=== PATIENT | female | born 2000 | race Two or more races ===

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

== ENCOUNTER 2019-01-08 22:38 | Emergency (ER) | payer OTHER ==
[2019-01-08 22:54] VITALS: BP 144/97
== END 2019-01-09 01:42 | disposition left against medical advice (07) ==
LOC: ER 22:38
DX: Z53.21 Procedure and treatment not carried out due to patient leaving prior to being seen by health care provider (principal)

== ENCOUNTER 2019-02-12 15:04 | Emergency (ER) | payer OTHER ==
--- NOTE | 2019-02-12 16:25 | ER Document Report ---
ED Medical Screen (RME) - General Chief Complaint: Flank Pain Stated Complaint: RIGHT FLANK PAIN,VOMITING Time Seen by Provider: 02/12/19 16:13 Primary Care Provider: LIANA DE LEÓN MD [Primary Care Provider] - Follow up as needed Mode of Arrival: Ambulatory TRAVEL OUTSIDE OF THE [place] IN LAST 30 DAYS: No - HPI Notes: 02/12/19 16:23 18-year-old female para 2 1 presents to the emergency room for complaints of nausea vomiting and right flank pain for the last week. Was seen at [facility] and admitted for stone, was given IV hydration and antibiotics however she has not passed the stone. Patient take is taking oral antibiotics outpatient. Symptoms become progressively worse. Reports low-grade fever yesterday. Decreased appetite, drinking without issues. Denies any chest pain shortness of breath, diarrhea I have greeted and performed a rapid initial assessment of this patient. A comprehensive ED assessment and evaluation of the patient, analysis of test results and completion of the medical decision making process will be conducted by additional ED providers. PHYSICAL EXAMINATION: GENERAL: Well-appearing, well-nourished and in no acute distress. HEAD: Atraumatic, normocephalic. CV: s1, s2 regular LUNGS: No respiratory distress abd: R cva tenderness - Related Data Allergies/Adverse Reactions: egg Allergy (Severe, Verified 02/12/19 16:13) Past Medical History - Social History Chew tobacco use (# tins/day): No Frequency of alcohol use: None Drug Abuse: None Pulmonary Medical History: Reports: Hx Asthma, Hx Bronchitis Neurological Medical History: Reports: Hx Seizures Endocrine Medical History: Denies: Hx Diabetes Mellitus Type 1, Hx Diabetes Mellitus Type 2, Hx Hypothyroidism Renal/ Medical History: Denies: Hx Peritoneal Dialysis Musculoskeltal Medical History: Reports Hx Arthritis, Reports Hx Muscle Spasm Traumatic Medical History: Denies: Hx Spine Fracture Past Surgical History: Reports: Hx Oral Surgery - wisdom teeth. Denies: Hx Neurologic Surgery, Hx Orthopedic Surgery - Immunizations Immunizations up to date: Yes Hx Diphtheria, Pertussis, Tetanus Vaccination: Yes Physical Exam - Vital signs Vitals: Temp Pulse Resp BP Pulse Ox 98.6 F 109 H 18 106/67 98 02/12/19 15:10 02/12/19 15:10 02/12/19 15:10 02/12/19 15:10 02/12/19 15:10 Course - Vital Signs Vital signs: Temp Pulse Resp BP Pulse Ox 98.6 F 109 H 18 106/67 98 02/12/19 16:13 02/12/19 16:13 02/12/19 16:13 02/12/19 16:13 02/12/19 16:13 Doctor's Discharge - Discharge Referrals: LIANA DE LEÓN MD [Primary Care Provider] - Follow up as needed
[2019-02-12 17:23] LABS: ABSOLUTE LYMPHOCYTES (AUTO) 0.4 10^3/uL (0.5-4.7); ABSOLUTE MONOCYTES (AUTO) 0.4 10^3/uL (0.1-1.4); ABSOLUTE NEUT (AUTO) 12.1 10^3/uL (1.7-8.2); BASOPHILS % (AUTO) 0.2 % (0-2); EOSINOPHILS % (AUTO) 0.1 % (0-6); HEMATOCRIT 42.5 % (36.0-47.0); HEMOGLOBIN 14.5 g/dL (12.0-15.5); LYMPHOCYTES % (AUTO) 3.1 % (13-45); MEAN CORPUSCULAR HEMOGLOBIN 29.4 pg (27.0-33.4); MEAN CORPUSCULAR VOLUME 87 fl (80-97); MONOCYTES % (AUTO) 2.9 % (3-13); PLATELET COUNT 356 10^3/uL (150-450); RED BLOOD COUNT 4.91 10^6/uL (3.72-5.28); RED CELL DISTRIBUTION WIDTH 13.9 % (11.5-14.0); SEGMENTED NEUTROPHILS % (AUTO) 93.7 % (42-78); TOTAL CELLS COUNTED % (AUTO) 100 %; WHITE BLOOD COUNT 12.9 10^3/uL (4.0-10.5)
[2019-02-12 17:41] LABS: ALBUMIN 4.2 g/dL (3.7-5.6); ALKALINE PHOSPHATASE 58 U/L (50-135); ANION GAP 10 (5-19); ASPARTATE AMINO TRANSFERASE 20 U/L (5-30); BILIRUBIN,DIRECT 0.2 mg/dL (0.0-0.4); BILIRUBIN,TOTAL 0.5 mg/dL (0.2-1.3); BLOOD UREA NITROGEN 8 mg/dL (7-20); CARBON DIOXIDE 24 mmol/L (22-30); CHLORIDE 104 mmol/L (98-107); GLUCOSE 97 mg/dL (75-110); POTASSIUM 4.3 mmol/L (3.6-5.0); TOTAL PROTEIN 7.2 g/dL (6.3-8.2)
[2019-02-12] MEDS ORDERED: NORMAL SALINE 1000 ML 1,000 ML IV ONE (18:12)
--- NOTE | 2019-02-12 18:12 | ER Document Report ---
ED General - General Mode of Arrival: Ambulatory TRAVEL OUTSIDE OF THE [place] IN LAST 30 DAYS: No <SHERIF HERMAN - Last Filed: 02/12/19 23:52> <MEL SEN - Last Filed: 02/13/19 01:49> - General Chief Complaint: Flank Pain Stated Complaint: RIGHT FLANK PAIN,VOMITING Time Seen by Provider: 02/12/19 16:13 Primary Care Provider: LIANA DE LEÓN MD [NO LOCAL MD] - Follow up as needed - [facility] Notes: 18-year-old female G2, P1 to the emergency department with complaints of right flank pain that has been ongoing since last week. She states that she was admitted to [facility] last week for pyelonephritis. She states that she stayed overnight and was given IV antibiotics. She was discharged on likely just and Ceftin ear. She states that since then she has not been able to tolerate any thing. She states that she vomits all of her antibiotics and cannot keep anything down. She states that she has had a fever as well. She states her fever was 102 last night. She states that she went to [facility] this morning and was given Tylenol and discharged home. She states that she continues to feel very poorly. She denies any vaginal bleeding or lower abdominal cramping. (SHERIF HERMAN) - Related Data Allergies/Adverse Reactions: egg Allergy (Severe, Verified 02/12/19 16:13) Past Medical History - General Information source: Patient - Social History Smoking Status: Never Smoker Chew tobacco use (# tins/day): No Frequency of alcohol use: None Drug Abuse: None Family History: Reviewed & Not Pertinent Patient has suicidal ideation: No Patient has homicidal ideation: No Pulmonary Medical History: Reports: Hx Asthma, Hx Bronchitis Neurological Medical History: Reports: Hx Seizures Endocrine Medical History: Denies: Hx Diabetes Mellitus Type 1, Hx Diabetes Mellitus Type 2, Hx Hypothyroidism Renal/ Medical History: Denies: Hx Peritoneal Dialysis Musculoskeletal Medical History: Reports Hx Arthritis, Reports Hx Muscle Spasm Traumatic Medical History: Denies: Hx Spine Fracture Past Surgical History: Reports: Hx Oral Surgery - wisdom teeth. Denies: Hx Neurologic Surgery, Hx Orthopedic Surgery - Immunizations Immunizations up to date: Yes Hx Diphtheria, Pertussis, Tetanus Vaccination: Yes <SHERIF HERMAN - Last Filed: 02/12/19 23:52> Review of Systems - Review of Systems Constitutional: Chills, Fever EENT: No symptoms reported Cardiovascular: denies: Chest pain, Palpitations, Orthopnea, Dyspnea, Syncope, Dizziness, Lightheaded Respiratory: denies: Cough, Short of breath Gastrointestinal: Nausea, Vomiting. denies: Abdominal pain, Diarrhea Genitourinary: Dysuria, Frequency, Flank pain, Urgency Female Genitourinary: Musculoskeletal: No symptoms reported Skin: No symptoms reported Hematologic/Lymphatic: No symptoms reported Neurological/Psychological: No symptoms reported -: Yes All other systems reviewed and negative <ANGELIKA HERMANBEELOINA Nielsen - Last Filed: 02/12/19 23:52> Physical Exam - Vital signs Interpretation: Tachycardic - General General appearance: Appears well, Alert - HEENT Head: Normocephalic, Atraumatic Eyes: Normal Pupils: PERRL - Respiratory Respiratory status: No respiratory distress Chest status: Nontender Breath sounds: Normal. No: Rales, Rhonchi, Stridor, Wheezing Chest palpation: Normal - Cardiovascular Rhythm: Regular Heart sounds: Normal auscultation Murmur: No - Abdominal Inspection: Normal Distension: No distension Bowel sounds: Normal Tenderness: Other - Positive right-sided CVA tenderness. No tenderness to the right upper quadrant, right lower quadrant, left lower quadrant, left upper quadrant. There is no rebound or guarding Organomegaly: No organomegaly - Back Back: CVA tenderness - Neurological Neuro grossly intact: Yes Cognition: Normal Orientation: AAOx4 Blanket Coma Scale Eye Opening: Spontaneous Blanket Coma Scale Verbal: Oriented Blanket Coma Scale Motor: Obeys Commands Ar Coma Scale Total: 15 Speech: Normal Motor strength normal: LUE, RUE, LLE, RLE Sensory: Normal - Psychological Associated symptoms: Normal affect, Normal mood - Skin Skin Temperature: Warm Skin Moisture: Dry Skin Color: Normal <HERMANANGELIKA BRIONESBEELOINA Nielsen - Last Filed: 02/12/19 23:52> - Vital signs Vitals: Temp Pulse Resp BP Pulse Ox 98.6 F 109 H 18 106/67 98 02/12/19 15:10 02/12/19 15:10 02/12/19 15:10 02/12/19 15:10 02/12/19 15:10 Course - Laboratory Result Diagrams: 02/12/19 16:50 02/12/19 16:50 <SHERIF HERMAN - Last Filed: 02/12/19 23:52> - Laboratory Result Diagrams: 02/12/19 16:50 02/12/19 16:50 <BENEDICT SENDHI R - Last Filed: 02/13/19 01:49> - Re-evaluation Re-evalutation: 02/12/19 20:07 8-week patient who is already been admitted for pyelonephritis once at [facility] to the emergency department with failed outpatient therapy. She continues to have nausea vomiting, uncontrolled pain, and inability to keep down her medications at home. We will await ultrasound and urinalysis and then will d iscuss with HEAD END DESIZING MACHINE OPERATOR. 02/12/[address] Gotti. He agrees with plan to discuss with HEAD END DESIZING MACHINE OPERATOR. I run on patient prior to calling HEAD END DESIZING MACHINE OPERATOR once urinalysis came back. Urinalysis actually does not look nearly as bad as I thought it would. Patient is requesting water and states that she is feeling better. Spoke with Dr. valerio, HEAD END DESIZING MACHINE OPERATOR on-call. We discussed her symptoms as well as her course over the past week. Dr. valerio is not particularly impressed with her urinalysis and I agree. She suspects that there might be some nausea involved with this. She request that we give another liter fluid and Decadron. She would like for us to p.o. challenge her and if she does well we can discharge home with Zofran and Phenergan. If she does not we can call Dr. valerio back and do an overnight admission. Rounded with patient and discussed the plan with her. She had one episode of vomiting after drinking water. Will dose with a second round of antiemetics and continue to give her the full 2 L of fluid. We will continue to allow her to rest. Discussed the patient with ABIMAEL Sen. Will turn her over while she is getting her fluids and discussed the plan as outlined with Dr. valerio above with ABIMAEL Sen. If patient cannot tolerate p.o. challenge a second time after second round of antiemetics then will have her call back Dr. valerio for further admission on the patient. (SHERIF HERMAN) 02/13/19 01:46 Pt has finished IV bolus and is PO tolerant. Pt is to be discharged home with phenergan suppository and zofran ODT. Discussed plan of care with pt who voices understanding and agrees with plan of care. (MEL SEN) - Vital Signs Vital signs: Temp Pulse Resp BP Pulse Ox 99.2 F 98 H 16 108/72 96 02/12/19 22:01 02/12/19 22:01 02/12/19 22:01 02/12/19 22:01 02/12/19 22:01 - Laboratory Laboratory results interpreted by me: 02/12/19 02/12/19 02/12/19 16:50 16:50 20:45 WBC 12.9 H Lymph % (Auto) 3.1 L Cass % (Auto) 2.9 L Absolute Neuts (auto) 12.1 H Absolute Lymphs (auto) 0.4 L Seg Neutrophils % 93.7 H Beta HCG, Quant 157703.00 H Urine Protein 30 H Urine Ketones 80 H Urine Ascorbic Acid 20 H Discharge <SHERIF HERMAN - Last Filed: 02/12/19 23:52> <MEL SEN - Last Filed: 02/13/19 01:49> - Discharge Clinical Impression: Flank pain Nausea & vomiting Qualifiers: Vomiting type: unspecified Vomiting Intractability: non-intractable Qualified Code(s): R11.2 - Nausea with vomiting, unspecified Condition: Stable Disposition: HOME, SELF-CARE Instructions: Antinausea Medication ([facility]) Additional Instructions: Please take medications as prescribed. Please continue taking your antibiotics and finish all doses unless called by hospital to change them. Please return immediately to the ER if you start having any worsening symptoms, including vomiting not controlled by medication, fever, worsening pain, vaginal bleeding/discharge, pelvic pain, abdominal pain, shortness of breath, chest pain, or any other sick symptoms that are concerning to you. Prescriptions: Promethazine HCl [Phenergan 25 mg Supp.rect] 25 mg SD Q4HP PRN #12 supp.rect PRN Reason: Ondansetron [Zofran Odt 4 mg Tablet] 4 mg PO Q4HP PRN #30 tab.rapdis PRN Reason: Referrals: LIANA DE LEÓN MD [NO LOCAL MD] - Follow up in 3-5 days
[2019-02-12] MEDS ORDERED: ONDANSETRON HCL INJ/PF 4 MG/2 ML SDV IV ONE ×2 (18:44→23:15)
[2019-02-12] MEDS ORDERED: CEFTRIAXONE 1 GM/D5W RTU 1 GM/50 ML RTUPB IV ONE (18:44)
[2019-02-12] MEDS ORDERED: MORPHINE SULFATE 10 MG/ML INJ IV ONE (19:05)
--- NOTE | 2019-02-12 20:29 | RADIOLOGY REPORT (SQ) ---
EXAM: US RETROPERITONEUM CLINICAL DATA: 18-year-old female with right flank pain and history of renal stone TECHNICAL DATA: Sonographic imaging of the retroperitoneum was performed to further evaluate the kidneys and bladder. Comparison: Previous abdominal ultrasound performed on 10/18/2018. FINDINGS: The right kidney measures 10.6 x 6.6 x 4.6 cm. The renal cortex is normal. There is no evidence of renal mass, calculi or perinephric fluid collection. There is no pelvocaliectasis. There is normal color Doppler signal within the right kidney. The left kidney measures 10.3 x 4.9 x 6.1 cm. The renal cortex is normal. There is no evidence of renal mass, calculi or perinephric fluid collection. There is no pelvocaliectasis. There is normal color Doppler signal within the left kidney. The bladder is well distended and smooth in contour. Bilateral ureteral jets are identified. Incidentally noted, there is a single intrauterine gestational sac which contains a pole demonstrating a heart rate of 173 bpm. The average crown-rump length measures 1.6 cm corresponding to a gestational age of seven weeks six days. IMPRESSION: 1. Normal retroperitoneal ultrasound. There is no evidence of urinary tract calcification or urinary tract obstruction at this time. 2. Incidentally noted is a single living intrauterine with an estimated ultrasound age of seven weeks, six days.
[2019-02-12 21:35] LABS: APPEARANCE,URINE SLIGHTLY-CLOUDY; BILIRUBIN,URINE NEGATIVE (NEGATIVE); COLOR,URINE YELLOW; GLUCOSE, URINE NEGATIVE (NEGATIVE); KETONES,URINE 80 mg/dL (NEGATIVE); LEUKOCYTE ESTERASE,URINE NEGATIVE (NEGATIVE); NITRITE,URINE NEGATIVE (NEGATIVE); PROTEIN,URINE 30 mg/dL (NEGATIVE); URINE SPECIFIC GRAVITY 1.028; UROBILINOGEN,URINE NEGATIVE mg/dL (<2.0)
[2019-02-12] MEDS ORDERED: DEXAMETHASONE SOD PHOS INJ 10 MG/1 ML VIAL IV ONE (22:34)
[2019-02-12] MEDS: NORMAL SALINE 1000 ML 1,000 ML IV PRN (23:07)
[2019-02-13] MEDS: NORMAL SALINE 1000 ML 1,000 ML IV PRN (00:10)
[2019-02-13] MEDS ORDERED: MORPHINE SULFATE 10 MG/ML INJ IV ONE (00:18)
[2019-02-13 02:02] VITALS: BP 110/64
== END 2019-02-13 02:01 | disposition home or self-care (01) ==
LOC: ER 15:04
DX: O26.91 Pregnancy related conditions, unspecified, first trimester (principal); R10.9 Unspecified abdominal pain; R11.2 Nausea with vomiting, unspecified; Z3A.08 8 weeks gestation of pregnancy
CPT/HCPCS: 36415; 87040; 84702; 83690; 85025; 80053; 81001; 76775; J2270; J2405; J7030; J0696; J1100; 87086; 96361; 96365; 96375; 96376; 99284

== ENCOUNTER 2019-02-16 15:12 | Emergency (ER) | payer OTHER ==
[2019-02-16] MEDS ORDERED: NORMAL SALINE 1000 ML 1,000 ML IV ONE ×2 (15:58→18:41)
--- NOTE | 2019-02-16 16:01 | ER Document Report ---
ED Medical Screen (RME) - General Chief Complaint: Nausea/Vomiting Stated Complaint: VOMITING BLOOD Time Seen by Provider: 02/16/19 15:51 Primary Care Provider: RADHA CHO CRNP [Primary Care Provider] - Follow up as needed Mode of Arrival: Ambulatory Information source: Patient Notes: Patient presents stating she is 8 weeks . Patient reports nausea and vomiting throughout the . Patient states she is vomited 6 times today 2 of which had blood in them. Patient complains of left upper abdominal tenderness as well. No fever. I have greeted and performed a rapid initial assessment of this patient. A comprehensive ED assessment and evaluation of the patient, analysis of test results and completion of the medical decision making process will be conducted by additional ED providers. TRAVEL OUTSIDE OF THE [place] IN LAST 30 DAYS: No - Related Data Allergies/Adverse Reactions: egg Allergy (Severe, Verified 02/16/19 15:51) Past Medical History Pulmonary Medical History: Reports: Hx Asthma, Hx Bronchitis Neurological Medical History: Reports: Hx Seizures Endocrine Medical History: Denies: Hx Diabetes Mellitus Type 1, Hx Diabetes Mellitus Type 2, Hx Hypothyroidism Renal/ Medical History: Denies: Hx Peritoneal Dialysis Musculoskeltal Medical History: Reports Hx Arthritis, Reports Hx Muscle Spasm Traumatic Medical History: Denies: Hx Spine Fracture Past Surgical History: Reports: Hx Oral Surgery - wisdom teeth. Denies: Hx Neurologic Surgery, Hx Orthopedic Surgery - Immunizations Immunizations up to date: Yes Hx Diphtheria, Pertussis, Tetanus Vaccination: Yes Physical Exam - Vital signs Vitals: Temp Pulse Resp BP Pulse Ox 98.1 F 82 16 123/83 100 02/16/19 15:19 02/16/19 15:19 02/16/19 15:19 02/16/19 15:19 02/16/19 15:19 - Abdominal Tenderness: Tender - Left upper quadrant Course - Vital Signs Vital signs: Temp Pulse Resp BP Pulse Ox 98.1 F 82 16 123/83 100 02/16/19 15:19 02/16/19 15:19 02/16/19 15:19 02/16/19 15:19 02/16/19 15:19 Doctor's Discharge - Discharge Referrals: RADHA CHO CRNP [Primary Care Provider] - Follow up as needed
[2019-02-16 16:27] LABS: ABSOLUTE EOSINOPHILS # (AUTO) 0.1 10^3/uL (0.0-0.6); ABSOLUTE LYMPHOCYTES (AUTO) 1.9 10^3/uL (0.5-4.7); ABSOLUTE MONOCYTES (AUTO) 0.7 10^3/uL (0.1-1.4); ABSOLUTE NEUT (AUTO) 7.2 10^3/uL (1.7-8.2); BASOPHILS % (AUTO) 0.3 % (0-2); EOSINOPHILS % (AUTO) 0.8 % (0-6); HEMATOCRIT 39.6 % (36.0-47.0); HEMOGLOBIN 13.6 g/dL (12.0-15.5); LYMPHOCYTES % (AUTO) 19.3 % (13-45); MEAN CORPUSCULAR HEMOGLOBIN 29.8 pg (27.0-33.4); MEAN CORPUSCULAR HGB CONC 34.4 g/dL (32.0-36.0); MEAN CORPUSCULAR VOLUME 87 fl (80-97); MONOCYTES % (AUTO) 7.1 % (3-13); PLATELET COUNT 365 10^3/uL (150-450); RED BLOOD COUNT 4.57 10^6/uL (3.72-5.28); SEGMENTED NEUTROPHILS % (AUTO) 72.5 % (42-78); TOTAL CELLS COUNTED % (AUTO) 100 %; WHITE BLOOD COUNT 9.9 10^3/uL (4.0-10.5)
[2019-02-16 16:50] LABS: ALBUMIN 3.8 g/dL (3.7-5.6); ALKALINE PHOSPHATASE 49 U/L (50-135); ANION GAP 12 (5-19); ASPARTATE AMINO TRANSFERASE 25 U/L (5-30); BILIRUBIN,DIRECT 0.1 mg/dL (0.0-0.4); BILIRUBIN,TOTAL 0.3 mg/dL (0.2-1.3); BLOOD UREA NITROGEN 7 mg/dL (7-20); CALCIUM 9.4 mg/dL (8.4-10.2); CARBON DIOXIDE 26 mmol/L (22-30); CHLORIDE 100 mmol/L (98-107); GLUCOSE 71 mg/dL (75-110); TOTAL PROTEIN 6.7 g/dL (6.3-8.2)
[2019-02-16 17:37] LABS: APPEARANCE,URINE SLIGHTLY-CLOUDY; BILIRUBIN,URINE NEGATIVE (NEGATIVE); COLOR,URINE YELLOW; GLUCOSE, URINE NEGATIVE (NEGATIVE); KETONES,URINE NEGATIVE (NEGATIVE); LEUKOCYTE ESTERASE,URINE TRACE (NEGATIVE); NITRITE,URINE NEGATIVE (NEGATIVE); PROTEIN,URINE 30 mg/dL (NEGATIVE); URINE SPECIFIC GRAVITY 1.026
[2019-02-16] MEDS ORDERED: METOCLOPRAMIDE HCL INJ/PF 10 MG/2 ML SDV IV ONE (18:42)
[2019-02-16] MEDS ORDERED: FAMOTIDINE INJ/PF 20 MG/2 ML SDV IV ONE (18:42)
[2019-02-16] MEDS ORDERED: ACETAMINOPHEN 325 MG TABLET PO ONE (18:42)
--- NOTE | 2019-02-16 18:47 | ER Document Report ---
ED General - General Chief Complaint: Nausea/Vomiting Stated Complaint: VOMITING BLOOD Time Seen by Provider: 02/16/19 15:51 Primary Care Provider: RADHA CHO CRNP [Primary Care Provider] - Follow up as needed Mode of Arrival: Ambulatory TRAVEL OUTSIDE OF THE [place] IN LAST 30 DAYS: No - HPI Notes: 18-year-old female 2 para 1 at 8 weeks EGA receiving care through [facility] experiencing problems with recurrent vomiting during this now presenting with a chief complaint of several episodes of vomiting today associated with some streaks of bright red blood. No syncope. Mild epigastric burning. She denies any history of peptic ulcer disease or GI bleeding in the past. Patient notes that she had obstetrical ultrasound at [facility] 2 weeks ago and was told that "everything looked good". Pertinent prior history: First was uncomplicated. Patient is a non- smoker. Denies abuse of alcohol or salicylates. - Related Data Allergies/Adverse Reactions: egg Allergy (Severe, Verified 02/16/19 15:51) Past Medical History - General Information source: Patient - Social History Smoking Status: Never Smoker Family History: Reviewed & Not Pertinent Patient has suicidal ideation: No Patient has homicidal ideation: No Pulmonary Medical History: Reports: Hx Asthma, Hx Bronchitis Neurological Medical History: Reports: Hx Seizures Endocrine Medical History: Denies: Hx Diabetes Mellitus Type 1, Hx Diabetes Mellitus Type 2, Hx Hypothyroidism Renal/ Medical History: Denies: Hx Peritoneal Dialysis Musculoskeletal Medical History: Reports Hx Arthritis, Reports Hx Muscle Spasm Traumatic Medical History: Denies: Hx Spine Fracture Past Surgical History: Reports: Hx Oral Surgery - wisdom teeth. Denies: Hx Neurologic Surgery, Hx Orthopedic Surgery - Immunizations Immunizations up to date: Yes Hx Diphtheria, Pertussis, Tetanus Vaccination: Yes Review of Systems - Review of Systems Notes: Constitutional: Negative for fever. HENT: Negative for sore throat. Eyes: Negative for visual changes. Cardiovascular: Negative for chest pain. Respiratory: Negative for shortness of breath. Gastrointestinal: As per HPI. Genitourinary: Negative for dysuria. Musculoskeletal: Negative for back pain. Skin: Negative for rash. Neurological: Negative for headaches, weakness or numbness. 10 point ROS negative except as marked above and in HPI. Physical Exam - Vital signs Vitals: Temp Pulse Resp BP Pulse Ox 98.1 F 82 16 123/83 100 02/16/19 15:19 02/16/19 15:19 02/16/19 15:19 02/16/19 15:19 02/16/19 15:19 - Notes Notes: GENERAL: Well-developed well-nourished appearing in no acute distress. SKIN: Good turgor no rashes. HEAD: Normocephalic atraumatic. EYES: PERRLA. EOMI. Conjunctivae and sclerae clear. EARS: CANALS AND TMS CLEAR. NOSE: CLEAR. MOUTH: Moist mucosa. Good dentition. No stridor or edema. No drooling. NECK: Supple. No masses or thyromegaly. No adenopathy. Carotids 2+ without bruits. No JVD. BACK: Symmetrical without tenderness. CHEST: Respirations unlabored. Breath sounds clear and symmetrical. HEART: Regular rhythm. No murmur gallop or rub. ABDOMEN: Soft nontender without masses, organomegaly or rebound. Bowel sounds normally active. No bruits. GENITALIA: Deferred. EXTREMITIES: No edema. No calf tenderness. Cap refill less than 1.5 seconds. Dorsalis pedis and posterior tibial pulses 3+ and symmetrical. NEUROLOGICAL: GCS 15. Alert and oriented x3. Normal gait. Fluent speech. Cranial nerves II through XII intact. Sensorimotor and cerebellar normal. Normal tone. PSYCHIATRIC: Appropriate affect. Course - Re-evaluation Re-evalutation: 02/16/19 18:46 Patient was actually eating a hamburger and [place] fries when I went in the room. Plan at this time is to give her an additional liter of normal saline IV along with some Reglan IV and Pepcid IV. I think she is having mild gastritis and hyperemesis of . I will reevaluate her after the completion of IV fluids and anticipate discharge home. - Vital Signs Vital signs: Temp Pulse Resp BP Pulse Ox 98.1 F 82 16 123/83 100 02/16/19 15:19 02/16/19 15:19 02/16/19 15:19 02/16/19 15:19 02/16/19 15:19 - Laboratory Result Diagrams: 02/16/19 16:04 02/16/19 16:04 Laboratory results interpreted by me: 02/16/19 02/16/19 16:04 16:04 Glucose 71 L Alkaline Phosphatase 49 L Beta HCG, Quant 278949.00 H Urine Protein 30 H Urine Urobilinogen 2.0 H Ur Leukocyte Esterase TRACE H Discharge - Discharge Clinical Impression: Hyperemesis of , Acute gastritis Condition: Stable Disposition: HOME, SELF-CARE Additional Instructions: Hyperemesis Gravidarum Hyperemesis gravidarum is the medical term for severe vomiting during . We don't know exactly why it occurs, but it's a common problem. Dehydration can occur. This reduces blood flow to the placenta, decreasing the baby's nourishment. The baby will also become dehydrated. There can be harmful changes in blood sodium, potassium, or acid balance. Our goal is to correct, and prevent, dehydration. For severe cases, we give IV fluids. Antinausea medication will be prescribed. (Don't be concerned about " defects" -- the risk to you and your baby from the hyperemesis is the biggest problem. The antinausea medication is very safe at this stage of .) Call the doctor if you have vaginal bleeding, abdominal pain, severe lightheadedness or weakness, or other alarming symptoms. Increase oral fluids. Take prescribed medication as directed Return here as needed for new or worsening symptoms. Follow-up with your OB doctor at the [facility]. Prescriptions: Famotidine [Pepcid 20 mg Tablet] 20 mg PO DAILY #12 tablet Metoclopramide HCl [Reglan 10 mg Tablet] 1 - 2 tab PO ASDIR PRN #25 tablet PRN Reason: Referrals: RADHA CHO CRNP [Primary Care Provider] - Follow up as needed
[2019-02-16 20:57] VITALS: BP 104/58
== END 2019-02-16 20:59 | disposition home or self-care (01) ==
LOC: ER 15:12
DX: O21.8 Other vomiting complicating pregnancy (principal); O99.611 Diseases of the digestive system complicating pregnancy, first trimester; K29.01 Acute gastritis with bleeding; Z3A.08 8 weeks gestation of pregnancy
CPT/HCPCS: 99284; 96361; 96374; 96375; 36415; 84702; 83690; 85025; 80053; 81001; J2765; J7030; S0028

== ENCOUNTER 2019-05-29 18:00 | Outpatient (CLI) | payer OTHER ==
[2019-05-29 19:22] LABS: APPEARANCE,URINE CLOUDY; BILIRUBIN,URINE NEGATIVE (NEGATIVE); COLOR,URINE YELLOW; GLUCOSE, URINE NEGATIVE (NEGATIVE); KETONES,URINE NEGATIVE (NEGATIVE); LEUKOCYTE ESTERASE,URINE TRACE (NEGATIVE); NITRITE,URINE NEGATIVE (NEGATIVE); PROTEIN,URINE NEGATIVE (NEGATIVE); URINE SPECIFIC GRAVITY 1.021; UROBILINOGEN,URINE NEGATIVE mg/dL (<2.0)
[2019-05-29 19:36] LABS: URINE AMPHETAMINES SCREEN NEGATIVE; URINE BARBITURATES SCREEN NEGATIVE; URINE BENZODIAZEPINES SCREEN NEGATIVE; URINE COCAINE SCREEN NEGATIVE; URINE MARIJUANA (THC) SCREEN NEGATIVE; URINE METHADONE SCREEN NEGATIVE; URINE PHENCYCLIDINE SCREEN NEGATIVE
== END 2019-05-29 19:38 | disposition home or self-care (01) ==
LOC: LC 18:00
PROVIDERS: ATTEND Obstetrics & Gynecology Gynecology
DX: O47.02 False labor before 37 completed weeks of gestation, second trimester (principal); Z3A.24 24 weeks gestation of pregnancy
CPT/HCPCS: 80307; 81001

== ENCOUNTER 2019-06-18 02:56 | Outpatient (CLI) | payer OTHER ==
[2019-06-18 03:34] LABS: RBCS (WET MOUNT) RARE RBCS SEEN; T.VAGINALIS (WET MOUNT) NO TRICHOMONAS SEEN; WBCS (WET MOUNT) FEW WBCS SEEN; YEAST (WET MOUNT) NO YEAST SEEN
[2019-06-18 03:44] LABS: APPEARANCE,URINE SLIGHTLY-CLOUDY; BILIRUBIN,URINE NEGATIVE (NEGATIVE); COLOR,URINE YELLOW; GLUCOSE, URINE NEGATIVE (NEGATIVE); KETONES,URINE NEGATIVE (NEGATIVE); LEUKOCYTE ESTERASE,URINE TRACE (NEGATIVE); NITRITE,URINE NEGATIVE (NEGATIVE); PROTEIN,URINE NEGATIVE (NEGATIVE); UROBILINOGEN,URINE NEGATIVE mg/dL (<2.0)
[2019-06-18 03:50] LABS: URINE AMPHETAMINES SCREEN NEGATIVE; URINE BARBITURATES SCREEN NEGATIVE; URINE BENZODIAZEPINES SCREEN NEGATIVE; URINE COCAINE SCREEN NEGATIVE; URINE MARIJUANA (THC) SCREEN NEGATIVE; URINE METHADONE SCREEN NEGATIVE; URINE PHENCYCLIDINE SCREEN NEGATIVE
--- NOTE | 2019-06-18 04:22 | RADIOLOGY REPORT (SQ) ---
EXAM DESCRIPTION: US LIMITED COMPLETED DATE/TME: 06/18/2019 00:00 CLINICAL HISTORY: 18 years Female, Cervical length to rule out Labor 27w4d Comparison: None. TECHNIQUE/LIMITATION: Targeted OB sonogram for requested parameters only. FINDINGS: Single IUP EGA is 27w5d with PREETHI of 09/12/19 EFW is 1112g at 49% (Hans) Cardiac activity: 153-bpm. MARILIN: 15.9-cm Placenta: Posterior. No demonstrated abruption or previa. (Imaging note: Ultrasound does not detect most cases of abruption and "placental abruption" is considered a clinical diagnosis.) Presentation: Vertex. Cervical length: 3.0-cm. Closed appearance. IMPRESSION: Targeted OB sonogram for requested parameters
[2019-06-18 04:58] LABS: CHLAM PCR NOT DETECTED (NOT DETECT)
== END 2019-06-18 04:25 | disposition home or self-care (01) ==
LOC: LC 02:56
PROVIDERS: ATTEND Student in an Organized Health Care Education/Training Program
DX: O47.02 False labor before 37 completed weeks of gestation, second trimester (principal); O99.282 Endocrine, nutritional and metabolic diseases complicating pregnancy, second trimester; E86.0 Dehydration; Z3A.27 27 weeks gestation of pregnancy
CPT/HCPCS: 76815; 80307; 81001; 87210; 87491; 87591

== ENCOUNTER → 2020-02-08 | Outpatient (CLI) | payer OTHER ==
[2020-02-08 14:33] LABS: ALBUMIN 4.1 g/dL (3.5-5.0); ALKALINE PHOSPHATASE 72 U/L (38-126); ANION GAP 7 (5-19); ASPARTATE AMINO TRANSFERASE 21 U/L (14-36); BILIRUBIN,DIRECT 0.1 mg/dL (0.0-0.4); BILIRUBIN,TOTAL 0.4 mg/dL (0.2-1.3); BLOOD UREA NITROGEN 12 mg/dL (7-20); CALCIUM 9.6 mg/dL (8.4-10.2); CARBON DIOXIDE 28 mmol/L (22-30); CHLORIDE 104 mmol/L (98-107); CHOLESTEROL 175.02 mg/dL (0-200); GLUCOSE 90 mg/dL (75-110); POTASSIUM 4.8 mmol/L (3.6-5.0); TOTAL PROTEIN 7.3 g/dL (6.3-8.2); TRIGLYCERIDES 88 mg/dL (<150)
[2020-02-08 14:49] LABS: DIRECT LDL 113 mg/dL (<100)
== END ==
LOC: OD 12:47
PROVIDERS: ATTEND Family Medicine
DX: R63.5 Abnormal weight gain (principal); Z83.49 Family history of other endocrine, nutritional and metabolic diseases; Z83.438 Family history of other disorder of lipoprotein metabolism and other lipidemia
CPT/HCPCS: 36415; 80053; 80061; 84443